=== PATIENT | male | born 1955 | race Caucasian/White ===

== ENCOUNTER 2017-02-22 12:32 | Emergency (ER) | payer BC ==
[2017-02-22] MEDS ORDERED: Lidocaine 1% MPF* 2 ML VIAL ONE (14:37)
[2017-02-22 15:01] VITALS: BP 147/92
--- NOTE | 2017-02-22 15:05 | UC ---
Wily Becker Erika, scribed for Jos Arambula MD on 02/22/17 at 1438 . Laceration HPI - HPI Summary HPI Summary: Patient is a 61-year-old male presenting to [facility] with a CC of left palm laceration. Patient reports that today around 11:30, he was removing nails from a board using a tool, and the tool lacerated his hand. Patient reports he was not wearing gloves when the incident happened. Currently, patient rates pain a constant 3/10. He reports his last tetanus vaccine was October 2016. Patient denies PMSHx. He reports a FHx CAD. Patient does not smoke or drink. - History Of Current Complaint Chief Complaint: UCLaceration Stated Complaint: HAND LAC Time Seen by Provider: 02/22/17 14:30 Hx Obtained From: Patient Laceration Location: Hand Mechanism Of Injury: Sharp Trauma Onset/Duration: Sudden Onset, Lasting Hours, Still Present Severity: Moderate Pain Intensity: 3 Pain Scale Used: 0-10 Numeric - Allergies/Home Medications Allergies/Adverse Reactions: Allergies Allergy/AdvReac Type Severity Reaction Status Date / Time No Known Allergies Allergy Verified 04/20/16 18:32 Home Medications: Home Medications Gabapentin CAP(*) [Neurontin 300 CAP(*)] 300 mg PO BID 02/22/17 [History Confirmed 02/22/17] Meloxicam 7.5 mg PO 02/22/17 [History] PMH/Surg Hx/FS Hx/Imm Hx Endocrine History Of: Denies: Diabetes, Thyroid Disease Cardiovascular History Of: Reports: Hypertension Denies: Cardiac Disorders Respiratory History Of: Denies: COPD, Asthma GI/ History Of: Denies: Ulcer - Surgical History Surgical History: Yes Surgery Procedure, Year, and Place: pylonydal cyst - Family History Known Family History: Positive: Cardiac Disease - Social History Alcohol Use: None Substance Use Type: None Review of Systems Constitutional: Negative Skin: Other - laceration to the left palm Eyes: Negative ENT: Negative Respiratory: Negative Cardiovascular: Negative Gastrointestinal: Negative Genitourinary: Negative Motor: Negative Neurovascular: Negative Musculoskeletal: Negative Neurological: Negative Psychological: Negative All Other Systems Reviewed And Are Negative: Yes Physical Exam Triage Information Reviewed: Yes Vital Signs: Initial Vital Signs Temp 97.6 F 02/22/17 12:54 Pulse 64 02/22/17 12:54 Resp 18 02/22/17 12:54 BP 143/81 02/22/17 12:54 Pulse Ox 98 02/22/17 12:54 Vital Signs Reviewed: Yes - Additional Comments Vital signs: reviewed General: Patient is comfortable lying in stretcher with no signs of distress HEENT: within normal limits Lungs: CTA B/L CVS: S1 & S2 present. No murmurs appreciated. ABDOMEN: Soft, non-tender. No signs of distention. No rebound no guarding, and no masses palpated. Bowel sounds are normal. EXTREMITIES: FROM in all major joints, no edema, no cyanosis or clubbing. Left palm with an small laceration of approximately 1.2 cm with irregular borders. No contused tissue. NEURO: Alert and oriented x 3. No acute neurological deficits. Speech is normal and follows commands. SKIN: Dry and warm Laceration Course/Dx - Course/Dx Course Of Treatment: Procedure - Suture. Patient was positioned appropriately, 5 cc lidocaine without epinephrine was used as a local anesthetic. 500cc NaCl was used for irrigation. Patient was sterile draped with wound exposed. 4 x 4.0 nylon interrupted sutures were placed with good approximation. Procedure tolerated without complications. Wound dressed with bacitracin and sterile gauze. No FB where seen. Laceration was repaired w/o complications. He is up todate in all his vaccinations. Last tetanous booster was on . He was given intruction to return ot the UC or Ed if he debelops more pain, increase in temprature or redness. He should f/u with PMD in 3 days for re-evalution of wound. 7-10 days for suture removal - Differential Dx - Laceration/Wound Differental Diagnoses: Cellulitis, Laceration, Puncture Wound Provider Diagnoses: Laceration Discharge - Discharge Plan Condition: Stable Disposition: HOME Patient Education Materials: Laceration (ED), Care For Your Stitches (ED) Referrals: Barry Dunne MD [Primary Care Provider] - Additional Instructions: Have sutures removed in 7-10 days. The documentation as recorded by the Wily booth Erika accurately reflects the service I personally performed and the decisions made by , Jos Arambula MD.
== END 2017-02-22 15:05 | disposition home or self-care (01) ==
LOC: UCEAST 12:32
DX: S61.412A Laceration without foreign body of left hand, initial encounter (principal); W27.8XXA Contact with other nonpowered hand tool, initial encounter; Y93.89 Activity, other specified; Y92.9 Unspecified place or not applicable; I10 Essential (primary) hypertension
CPT/HCPCS: 99212; G0463

== ENCOUNTER 2017-03-03 13:14 | Emergency (ER) | payer BC ==
[2017-03-03 13:58] VITALS: BP 132/69
--- NOTE | 2017-03-03 14:07 | UC ---
Skin Complaint HPI - HPI Summary HPI Summary: here to have 4 stitches removed from the sheth surface of left hand---placed 8 days ago---wound healing with out difficulty, no pain no red no swelling streaking or warmth - History of Current Complaint Chief Complaint: UCSkin Time Seen by Provider: 03/03/17 14:02 Stated Complaint: SUTURE REMOVAL Hx Obtained From: Patient Onset/Duration: Sudden Onset Skin Exposure Onset/Duration: Days Ago - 8 Timing: Constant Onset Severity: Moderate Current Severity: None Pain Intensity: 0 Pain Scale Used: 0-10 Numeric Location: Discrete - palm surface ofleft hand in line with 2nd Aggravating: Nothing Alleviating: Nothing Associated Signs & Symptoms: Positive: Negative Related History: Trauma - 8 days ago - Allergy/Home Medications Allergies/Adverse Reactions: Allergies Allergy/AdvReac Type Severity Reaction Status Date / Time No Known Allergies Allergy Verified 03/03/17 13:54 Review of Systems Constitutional: Negative Skin: Other - healing and well approximated wound left palm surface Eyes: Negative ENT: Negative Respiratory: Negative Cardiovascular: Negative Gastrointestinal: Negative Genitourinary: Negative Motor: Negative Neurovascular: Negative Musculoskeletal: Negative Neurological: Negative Psychological: Negative All Other Systems Reviewed And Are Negative: Yes PMH/Surg Hx/FS Hx/Imm Hx Previously Healthy: No Endocrine History Of: Denies: Diabetes, Thyroid Disease Cardiovascular History Of: Reports: Hypertension Denies: Cardiac Disorders Respiratory History Of: Denies: COPD, Asthma GI/ History Of: Denies: Ulcer - Surgical History Surgical History: Yes Surgery Procedure, Year, and Place: pylonydal cyst - Family History Known Family History: Positive: Cardiac Disease - Social History Occupation: Employed Full-time Lives: With Family Alcohol Use: None Substance Use Type: None Smoking Status (MU): Unknown if Ever Smoked Type: Smokeless Tobacco Household Exposure Type: Cigarettes Physical Exam Triage Information Reviewed: Yes Appearance: Well-Appearing, No Pain Distress, Well-Nourished Vital Signs: Initial Vital Signs Temp 97.5 F 03/03/17 13:55 Pulse 67 03/03/17 13:55 Resp 16 03/03/17 13:55 BP 132/69 03/03/17 13:55 Pulse Ox 97 03/03/17 13:55 Vital Signs Reviewed: Yes Eye Exam: Normal Eyes: Positive: Conjunctiva Clear ENT Exam: Normal ENT: Positive: Normal ENT inspection, Hearing grossly normal. Negative: Nasal congestion, Nasal drainage, Trismus, Muffled/hoarse voice Dental Exam: Normal Neck exam: Normal Neck: Positive: Supple, Nontender, No Lymphadenopathy Respiratory Exam: Normal Respiratory: Positive: No respiratory distress, No accessory muscle use Cardiovascular Exam: Normal Cardiovascular: Positive: RRR, Pulses Normal, Brisk Capillary Refill Musculoskeletal Exam: Normal Musculoskeletal: Positive: Strength Intact, ROM Intact, No Edema, Other: - full rom 2nd finger left hand, n/m/c intact Neurological Exam: Normal Neurological: Positive: Alert, Muscle Tone Normal Psychological Exam: Normal Skin Exam: Normal Re-Evaluation - Re-Evaluation First Eval Change: Improved - tolerated suture removal well, n/m/c intact wound well approximated, steri stips and benzoin applied Course/Dx - Course Course Of Treatment: steri strips, wound care, follow with pcp prn - Differential Diagnoses - Skin Complaint Differential Diagnoses: Cellulitis, Other - healing wound, suture removal - Diagnoses Provider Diagnoses: Healing wound, suture removal right hand Discharge - Discharge Plan Condition: Stable Disposition: HOME Patient Education Materials: Stitches Removal (ED), Steristrips (ED) Referrals: Barry Dunne MD [Primary Care Provider] - If Needed
== END 2017-03-03 14:15 | disposition home or self-care (01) ==
LOC: UCEAST 13:14
DX: Z48.02 Encounter for removal of sutures (principal)

== ENCOUNTER 2017-03-21 11:46 | Day surgery (SDC) | payer BC ==
[2017-03-21] MEDS ORDERED: Bupivacaine 0.5% SDV PF* 30 ML VIAL ONE (12:17)
[2017-03-21] MEDS ORDERED: Lidocaine 2.5%/Prilocain 2.5%* 5 GM TUBE ONE (12:17)
[2017-03-21 15:26] VITALS: BP 155/79
--- NOTE | 2017-03-22 06:25 | OP ---
OPERATIVE REPORT: DATE OF OPERATION: 03/21/17. DATE OF : 51 SURGEON: Jv Donahue MD. SINGLE SPINDLE SCREW MACHINE OPERATOR: HARDIK Chou. ANESTHESIOLOGIST: None. ANESTHESIA: Local only with digital blocks to right long and middle fingers with 0.5% Marcaine. PRE-OP DIAGNOSES: 1. Right long finger mucous cyst. 2. Right index finger traumatic wound due to barn wood splinter. POST-OP DIAGNOSES: 1. Right long finger mucous cyst. 2. Right index finger traumatic wound due to barn wood splinter. PROCEDURES: 1. Excision of right long finger mucous cyst. 2. Exploration of right index finger traumatic wound with debridement of skin and subcutaneous tissue. INDICATIONS: Tyler is a 61-year-old male who has had a right long finger mucous cyst for a couple of years. He has drained it once himself and it has recurred. It is deforming the nail plate. He came to my office and he wanted to have the cyst removed. We talked about risks and benefits including the risk of cyst recurrence, wound breakdown, infection, mallet finger deformity, amongst others. He elected to proceed with surgery. He arrived for surgery today. He reports that 4 days prior he was taking down some wood in his barn, and when it splinted apart, he got quite a large wooden splinter on the dorsal radial aspect of the right index finger. He did his best to remove the splinter , but he was unsure if he was able to remove all the fragments. I spoke with him that we could explore that wound and make sure there was no retained wooden fragments and he wants me to do that as well. ESTIMATED BLOOD LOSS: 5 mL. COMPLICATIONS: None. FINDINGS: I did not see any wooden splinters in the traumatic wound. DESCRIPTION OF PROCEDURE: Tyler was seen in the preoperative holding area. The correct side, site, and procedure were identified. I performed digital blocks to the right index and long finger with 0.5% Marcaine. I then came back to the operating room where the arm was prepped and draped in usual fashion and a time-out was performed. I began by making an A shaped incision over the center of the dorsal aspect of the DIP joint of the right long finger. Full thickness flaps were raised right up to the paratenon. I identified the collateral ligaments on either side and excised the capsule and soft tissue in the interval between the terminal extensor tendon and the collateral ligaments. The DIP joint was visualized on both the radial and ulnar aspects of the tendon. There was a couple of dorsal osteophytes on the distal middle phalanx that I excised with a rongeur. I debrided all the soft tissue out to the cyst, which was located in the ulnar aspect of the eponychium and was deforming the nail. I decompressed the cyst. I used a 15 blade to excise as much of the lining of the cyst as possible. I debrided the rest with a curette and rongeur. At this point, I went ahead and irrigated out the wound. The skin flaps were let back and were closed with 5-0 nylon interrupted sutures. Attention was then turned to the right index finger where I extended the traumatic wound proximally another 0.5 cm. The tract where the large wooden splinter had gone into the finger was identified, this was probed until it stopped. I was able to retract back all skin and I looked very closely under 2.5x loupe magnification. I could not see any wooden splinters. I irrigated out the wound copiously and then I trimmed up some necrotic skin edges and a little bit of dirty appearing subcutaneous tissue. The wound was nice and clean at this point, so again I irrigated out and closed it with a couple of 5- 0 nylon sutures. I had placed a Tourni-Cot on the right index finger prior to exploring the wound. This was removed once the sutures were in place. I had a Tourni-Cot in place throughout the entirety of the mucous cyst excision as well. Both fingers pinked up immediately after the Tourni-Cot came off. Wounds were dressed with Xeroform, a 4x4 over the dorsum of the DIP joint on the long finger to act as a low pressure dressing and then fingers were wrapped in 1 inch Tyler and then Coban. He was then taken to the recovery room in stable condition. [id number]/[facility] #: [id number] CASH
== END 2017-03-21 15:30 | disposition home or self-care (01) ==
LOC: OREAST 11:46
PROVIDERS: ATTEND Orthopaedic Surgery Hand Surgery
DX: M67.48 Ganglion, other site (principal); S61.240A Puncture wound with foreign body of right index finger without damage to nail, initial encounter; W45.8XXA Other foreign body or object entering through skin, initial encounter; Y93.89 Activity, other specified; Y92.71 Barn as the place of occurrence of the external cause
CPT/HCPCS: 88304; A9270-GY

== ENCOUNTER 2018-06-26 18:51 | Emergency (ER) | payer BC ==
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
[2018-06-26] MEDS ORDERED: Sulfamethox/Trimethoprim DS 800/160* TAB PO ONE (19:24)
[2018-06-26] MEDS ORDERED: oxyCODONE/Acetamin 5/325 MG* TAB ONE (19:24)
[2018-06-26] MEDS ORDERED: oxyCODONE/Acetamin 5/325 MG* TAB PO ONE (19:24)
[2018-06-26] MEDS ORDERED: Neomycin/Polym/Bacit TOP OINT* 15 GM TOPICAL ONE (19:27)
[2018-06-26 20:16] VITALS: BP 175/92
== END 2018-06-26 20:20 | disposition home or self-care (01) ==
LOC: ED 18:51
DX: T24.201A Burn of second degree of unspecified site of right lower limb, except ankle and foot, initial encounter (principal); T31.0 Burns involving less than 10% of body surface; X08.8XXA Exposure to other specified smoke, fire and flames, initial encounter; W40.8XXA Explosion of other specified explosive materials, initial encounter; Y93.9 Activity, unspecified; Y92.9 Unspecified place or not applicable
CPT/HCPCS: 99282; A9270-GY

== ENCOUNTER 2021-09-29 11:32 | Inpatient (IN) ==
[~2021-09-29 11:32] MED LIST: Buffered Lidocaine 1% SYRIN 1 ml INTRADERM ONE; Lactated Ringers 1000 ml BAG 1,000 ML IV SCH
[2021-09-29] MEDS ORDERED: ceFAZolin 2 GM in NS PREMIX 2 GM/100 ML BAG IVPB ONE (11:56)
[2021-09-29] MEDS ORDERED: Dexamethasone IV 4 MG/ML VIAL 1 ml VIAL ONE ×2 (12:00→13:25)
[2021-09-29] MEDS ORDERED: ROPIVACAINE 5 MG/ML 30 ML BTL (0.5%) ONE (12:06)
[2021-09-29] MEDS ORDERED: Phenylephrine IV 10 MG/ML 1 ml VIAL ONE (13:25)
[2021-09-29] MEDS ORDERED: Propofol 10 MG/ML 20 ML BTL ONE ×2 (13:25→16:01)
[2021-09-29] MEDS ORDERED: fentaNYL 100 mcg/2 ml 50 MCG/ML VIAL ONE (13:25)
[2021-09-29] MEDS ORDERED: Bupivacaine 0.5% SDV PF 30ML VIAL ONE ×2 (14:53→14:54)
[2021-09-29] MEDS ORDERED: diPHENhydraMINE IV 50 MG/ML 1 ml VIAL (BENADRYL) IV PRN (15:53)
[2021-09-29] MEDS ORDERED: Lactulose 30 ml UDC PO PRN (15:53)
[2021-09-29] MEDS ORDERED: Ondansetron ODT 4 mg TAB 4 MG TAB PO PRN (15:53)
[2021-09-29] MEDS ORDERED: Ondansetron 4 mg VIAL 2 MG/ML 2 ml VIAL IV PRN ×2 (15:53→17:00)
[2021-09-29] MEDS ORDERED: Morphine 2 MG/ML SYRINGE IV PRN (15:53)
[2021-09-29] MEDS ORDERED: diPHENhydraMINE 25 mg TAB PO PRN (15:53)
[2021-09-29] MEDS ORDERED: Magnesium Hydroxide LIQ 30 ML UDC PO PRN (15:53)
[2021-09-29] MEDS ORDERED: Lactated Ringers 1000 ml BAG 1,000 ML IV SCH (16:00)
[2021-09-29] MEDS ORDERED: Naloxone 0.4 mg VIAL 0.4 mg/ml 1 ml VIAL IV PRN (17:00)
[2021-09-29] MEDS ORDERED: DiMENhydriNATE IV 50 mg/ml 1 ml VIAL IV PUSH PRN (17:00)
[2021-09-29] MEDS ORDERED: fentaNYL 100 mcg/2 ml 50 MCG/ML VIAL IV PRN (17:00)
[2021-09-29] MEDS ORDERED: Acetaminophen IV 1 GM/100ML 100 ML IV ONE (17:00)
[2021-09-29] MEDS ORDERED: HYDROmorphone 1 MG/1 ML SYRINGE IV PRN (17:00)
[2021-09-29] MEDS ORDERED: Ondansetron 4 mg VIAL 2 MG/ML 2 ml VIAL ONE (17:51)
[2021-09-29] MEDS: Magnesium Hydroxide LIQ 30 ML UDC PO SCH (22:22)
[2021-09-30] MEDS: ceFAZolin 1 GM ADVAN 1 GM in NS 0.9% 50 ML 50 ML IVPB SCH ×3 (00:09→14:44)
[2021-09-30 06:01] LABS: Hematocrit 40 % (42-52); Hemoglobin 13.7 g/dL (14.0-18.0); Mean Platelet Volume 7.8 fL (7.4-10.4); Platelet Count 267 10^3/uL (150-450)
[2021-09-30 06:18] LABS: Calcium 9.1 mg/dL (8.6-10.3); Potassium 4.5 mmol/L (3.5-5.0)
[2021-09-30] MEDS: Magnesium Hydroxide LIQ 30 ML UDC PO SCH (08:48)
[2021-09-30] MEDS ORDERED: Vitamin THERAPEUTIC TAB PO SCH (09:00)
[2021-09-30] MEDS ORDERED: Venlafaxine XR 75 mg PO SCH (09:00)
[2021-09-30 11:31] VITALS: BP 135/73
== END 2021-09-30 15:30 | disposition home or self-care (01) | DRG 470 ==
LOC: AA 11:32 → SSU 20:32
PROVIDERS: ADMIT Orthopaedic Surgery Adult Reconstructive Orthopaedic Surgery; ATTEND Orthopaedic Surgery Adult Reconstructive Orthopaedic Surgery